=== PATIENT | female | born 1965 | race Caucasian/White ===

== ENCOUNTER 2017-07-22 09:51 | Emergency (ER) | payer OTHER, MEDICAID ==
[~2017-07-22] VITALS: Ht 154.9 cm; Wt 77.1 kg
[~2017-07-22 09:51] MED LIST: AZITHROMYCIN 2250 MG PO; HYDROCHLOROTHIA25 M2 PO; NOHOMEMEDICATIONS; PREDNISONE 20 M20 M1 PO; PROAIR HFA8.5 GM IH; ULTRAM 50MG TAB50 MG PO
[2017-07-22 10:46] LABS: ABSOLUTE BASOPHILS 0.1 thou/uL (0.0-0.2); ABSOLUTE EOSINOPHILS 0.1 thou/uL (0.0-0.7); ABSOLUTE LYMPHOCYTES 1.6 thou/uL (0.8-5.3); ABSOLUTE MONOCYTES 0.4 thou/uL (0.0-1.2); ABSOLUTE NEUTROPHILS 4.2 thou/uL (1.6-8.1); BASOPHILS 0.9 %; EOSINOPHILS 1.6 %; HEMATOCRIT 41.5 % (37.0-47.0); MCH 31.8 pg (26.0-34.0); MCHC 33.7 g/dL (28.0-37.0); MCV 94.5 fL (80.0-100.0); MPV 9.3 fl. (7.2-11.1); NUCLEATED RBCS 0 /100WBC; PLATELET COUNT* 193 thou/uL (150-400); POLYS 65.5 %; RBC 4.39 mil/uL (4.20-5.00); RDW-CV 13.7 % (10.5-14.5); WBC 6.4 thou/uL (4.0-11.0)
[2017-07-22 10:55] LABS: ANION GAP 5 mmol/L (7-16); BUN 17 mg/dL (7-18); CALCIUM 8.6 mg/dL (8.5-10.1); CHLORIDE 106 mmol/L (98-107); CO2 27 mmol/L (21-32); CREATININE 1.2 mg/dL (0.6-1.3); GLUCOSE 123 mg/dL (70-99); POTASSIUM 3.9 mmol/L (3.5-5.1); SODIUM 138 mmol/L (136-145)
[2017-07-22 11:02] LABS: ALKALINE PHOSPHATASE 89 U/L (46-116); SGOT 12 U/L (15-37); SGPT 17 U/L (30-65); TOTAL BILIRUBIN 0.3 mg/dL (<0.1-1.0); TOTAL PROTEIN 6.1 g/dL (6.4-8.2); TROPONIN-I LEVEL <0.06 ng/mL (<0.06)
[2017-07-22 12:11] LABS: URINE BILIRUBIN NEGATIVE (Negative); URINE BLOOD NEGATIVE (Negative); URINE CLARITY CLEAR; URINE COLOR YELLOW; URINE GLUCOSE-RANDOM NEGATIVE (Negative); URINE KETONES NEGATIVE (Negative); URINE LEUKOCYTES-REFLEX NEGATIVE (Negative); URINE NITRITE-REFLEX NEGATIVE (Negative); URINE PROTEIN NEGATIVE (Negative); URINE SPECIFIC GRAVITY 1.015 (1.005-1.030); URINE UROBILINOGEN 0.2 E.U./dl (0.2-1.0)
[2017-07-22 13:07] VITALS: BP 172/80
--- NOTE | 2017-07-23 09:33 | EKG ---
[place] [address] ELECTROCARDIOGRAM REPORT Name: REBECCA HESTER Room: [facility]#: [id number] Admission: 07/22/17 Attend Phys: Discharge: 07/22/17 Date of : 61 Report #: [id number] THIS REPORT FOR: //name// [facility] ED Test Date: 2017-07-22 Test Time: 11:11:47 Pat Name: REBECCA HESTER Department: Room: Gender: F Commissions Analyst: ANDIE : 1965 Requested By: Elvira Givens Order Number: [id number] MD: Taqueria Awad Measurements Intervals [place] Rate: 62 P: 45 NH: 148 QRS: 20 QRSD: 88 T: 29 QT: 411 QTc: 418 Interpretive Statements Sinus rhythm Low voltage, precordial leads No previous ECG available for comparison Electronically Signed On 07-23-2017 9:33:30 CDT by Taqueria Awad [email or web address] <ELECTRONICALLY SIGNED> By: Taqueria Awad MD, [facility] 07/23/17 0933 [id number] [id number] Taqueria Awad MD, [facility] /EPI
== END 2017-07-22 13:08 | disposition home or self-care (01) ==
LOC: M.ERS 09:51
PROVIDERS: Physician Assistant
DX: R60.0 Localized edema (principal); Z88.5 Allergy status to narcotic agent; Z88.0 Allergy status to penicillin